=== PATIENT | male | born 1985 | race African-American/Black ===

== ENCOUNTER 2017-01-14 17:11 | Emergency (ER) | payer SELFPAY ==
[2017-01-14 17:37] LABS: #Basophils 0.1 thou/uL (0.0-0.2); #Lymphocytes 1.9 thou/uL (1.20-3.40); #Monocytes 0.4 thou/uL (0.11-0.59); #Neutrophils 4.9 thou/uL (1.40-6.50); %Basophils 1.1 % (0.0-1.0); %Eosinophils 0.1 % (0.0-10.0); %Monocytes 5.3 % (0.0-10.0); Hematocrit 52.1 % (42.0-52.0); Mean Platelet Volume 8.2 fL (7.4-10.4); Red Blood Cell (RBC) Count 5.36 mill/uL (4.70-6.10); White Blood Cell (WBC) Count 7.2 thou/uL (4.8-10.8)
[2017-01-14 17:54] LABS: Acetaminophen Less than 3.0 mcg/mL (10.0-30.0); Salicylate Less than 5.0 mg/dL (15.0-30.0)
[2017-01-14 17:57] LABS: ALT (SGPT) 23 U/L (0-55); AST (SGOT) 19 U/L (5-34); Alkaline Phosphatase 54 U/L (40-150); Anion Gap 19 mmol/L (10-20); BUN (Urea Nitrogen) 8 mg/dL (8.9-20.6); Bilirubin, Total 0.9 mg/dL (0.2-1.2); Calc. Creatinine Clearance 0 mL/min (70-130); Carbon Dioxide 25 mmol/L (22-29); Chloride 102 mmol/L (98-107); Estimated GFR-MDRD Greater than 90; Globulin 3.9 g/dL (2.4-3.5); Lipase 8 U/L (8-78); Protein, Total 9.1 g/dL (6.0-8.3)
[2017-01-14 17:59] LABS: Troponin I Less than 0.010 ng/mL (< 0.028)
--- NOTE | 2017-01-14 18:55 | RAD ---
PORTABLE UPRIGHT FRONTAL CHEST RADIOGRAPH: Date: 01-14-17 Comparison: History: Shortness of breath, chest pain. FINDINGS: Lungs are clear. Heart and mediastinal contours are within normal limits. IMPRESSION: No acute findings. POS: [facility]
[2017-01-14 20:02] LABS: Troponin I Less than 0.010 ng/mL (< 0.028)
== END 2017-01-14 20:16 | disposition home or self-care (01) ==
LOC: BURERS 17:11
DX: R55 Syncope and collapse (principal); F17.210 Nicotine dependence, cigarettes, uncomplicated
CPT/HCPCS: 71010; 80053; 80307; 82553; 83690; 84443; 84484; 85025; 85379; 93005; 96360